=== PATIENT | female | born 1965 | race Caucasian/White ===

== ENCOUNTER 2018-04-27 10:32 | Emergency (ER) | payer BC, MEDICARE ==
[2018-04-27] MEDS ORDERED: ONDANSETRON HCL IV 4 MG/2 ML VIAL IV ONE (11:03)
[2018-04-27] MEDS ORDERED: 0.9 % SODIUM CHLORIDE 1,000 ML BAG IV ONE (11:03)
[2018-04-27] MEDS ORDERED: KETOROLAC 30 MG/ML VIAL IVP ONE (11:03)
--- NOTE | 2018-04-27 11:03 | Emergency Department Record ---
History of Present Illness - General Chief Complaint: Abdominal Pain Stated Complaint: ABD PAIN Time Seen by Provider: 04/27/18 10:54 Source: Patient Mode of Arrival: Wheelchair - History of Present Illness Initial Comments: Monday04-23-18, the patient saw Dr Bey for a UTI. She had no blood drawn or scans, but had 5/10 LLQ into flank pain at that time. She began getting IM rocephin shots yesterday once, and this morning for a second dose. Last evening she began feeling lightheaded and shakey with an increase in her pain from 5/10 to 7/10 and very severe nausea without vomiting. She was brought to the ED for evaluation of this increased pain and light headedness. 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 She also has daily migraines. She denies headache fevers, sore throat or chills. MD Complaint: Abdominal pain, Flank pain Onset/Timin -: Week(s) Location: LLQ Radiation: Back Severity: Moderate Severity scale (1-10): 7 Quality: Cramping, Sharp Consistency: Constant Improves With: Rest Worsens With: Movement Associated Symptoms: Dysuria - Related Data Patient : No Home Medications Medication Instructions Recorded Confirmed Last Taken Amitriptyline HCl 100 mg PO QHS 04/27/18 04/27/18 Unknown Clonidine HCl 0.1 mg PO ASDIR 04/27/18 04/27/18 Unknown Diphenhydramine HCl [Benadryl] 50 mg PO QHS 04/27/18 04/27/18 Unknown Ketorolac Tromethamine 30 mg IJ ASDIR 04/27/18 04/27/18 Unknown Lorazepam [Ativan] 0.5 mg PO TID PRN 04/27/18 04/27/18 Unknown Memantine HCl 5 mg PO BID 04/27/18 04/27/18 Unknown Methocarbamol [Robaxin] 500 mg PO BID 04/27/18 04/27/18 Unknown Promethazine HCl [Phenergan] 25 mg PO ASDIR 04/27/18 04/27/18 Unknown Trazodone HCl 50 mg PO QHS 04/27/18 04/27/18 Unknown Allergies Allergy/AdvReac Type Severity Reaction Status Date / Time acetaminophen [From Vicodin] Allergy VOMITING Verified 03/17/15 18:26 hydrocodone bitartrate Allergy VOMITING Verified 03/17/15 18:26 [From Vicodin] sumatriptan succinate Allergy SHORTNESS Verified 03/17/15 18:26 [From Imitrex] OF BREATH Travel Screening - Travel/Exposure Within Last 30 Days Have you traveled within the last 30 days?: No Review of Systems Reviewed: No additional complaints except as noted below Constitutional: Reports: As per HPI. Denies: Chills, Fever, Malaise, Night sweats, Weakness, Weight change Eyes: Reports: As per HPI. Denies: Eye discharge, Eye pain, Photophobia, Vision change ENT: Reports: As per HPI. Denies: Congestion, Dental pain, Ear pain, Epistaxis , Hearing loss, Throat pain Respiratory: Reports: As per HPI. Denies: Cough, Dyspnea, Hemoptysis, Stridor, Wheezes Cardiovascular: Reports: As per HPI. Denies: Arrhythmia, Chest pain, Dyspnea on exertion, Edema, Murmurs, Orthopnea, Palpitations, Paroxysmal nocturnal dyspnea, Rheumatic Fever, Syncope Endocrine: Reports: As per HPI. Denies: Fatigue, Heat or cold intolerance, Polydipsia, Polyuria Gastrointestinal: Reports: As per HPI. Denies: Abdominal pain, Constipation, Diarrhea, Hematemesis, Hematochezia, Melena, Nausea, Vomiting Genitourinary: Reports: As per HPI. Denies: Abnormal menses, Discharge, Dyspareunia, Dysuria, Frequency, Hematuria, Incontinence, Retention, Urgency Musculoskeletal: Reports: As per HPI. Denies: Arthralgia, Back pain, Gout, Joint swelling, Myalgia, Neck pain Skin: Reports: As per HPI. Denies: Bruising, Change in color, Change in hair/ nails, Lesions, Pruritus, Rash Neurological: Reports: As per HPI. Denies: Abnormal gait, Confusion, Headache, Numbness, Paresthesias, Seizure, Tingling, Tremors, Vertigo, Weakness Psychiatric: Reports: As per HPI. Denies: Anxiety, Auditory hallucinations, Depression, Homicidal thoughts, Suicidal thoughts, Visual hallucinations Hematological/Lymphatic: Reports: As per HPI. Denies: Anemia, Blood Clots, Easy bleeding, Easy bruising, Swollen glands Past Medical History - SOCIAL HISTORY Smoking Status: Never smoker - RESPIRATORY Hx Respiratory Disorders: No - CARDIOVASCULAR Hx Cardio Disorders: Yes Hx Hypertension: Yes - NEURO Hx Neuro Disorders: Yes Hx Headaches: Yes - GI Hx GI Disorders: Yes Hx Reflux: Yes Hx Obstructive Bowel: Yes - Hx Genitourinary Disorders: No - ENDOCRINE Hx Endocrine Disorders: No - MUSCULOSKELETAL Hx Musculoskeletal Disorders: Yes Hx Back Injury: Yes - PSYCH Hx Psych Problems: No - HEMATOLOGY/ONCOLOGY Hx Hematology/Oncology Disorders: No Family Medical History Any Significant Family History?: Yes Hx Alcohol Use: Father Hx HTN: Mother Physical Exam - General General Appearance: Alert, Oriented x3, Cooperative, Moderate distress - Head Head exam: Normal inspection - Eye Eye exam: Normal appearance, PERRL Pupils: Normal accommodation - ENT ENT exam: Normal exam, Mucous membranes dry, Normal external ear exam, Normal orophraynx, TM's normal bilaterally Ear exam: Normal external inspection. negative: External canal tenderness Nasal Exam: Normal inspection. negative: Discharge, Sinus tenderness Mouth exam: Normal external inspection, Tongue normal Teeth exam: Normal inspection. negative: Dental caries Throat exam: Normal inspection. negative: Tonsillar erythema, Tonsillar exudate - Neck Neck exam: Normal inspection, Full ROM. negative: Lymphadenopathy, Meningismus , Tenderness - Respiratory Respiratory exam: Normal lung sounds bilaterally. negative: Respiratory distress - Cardiovascular Cardiovascular Exam: Regular rate, Normal rhythm, Normal heart sounds - GI/Abdominal GI/Abdominal exam: Soft, Normal bowel sounds, Guarding, Tenderness (LLQ tender to palpation with radiation into left flank.). negative: Rebound, Rigid - Rectal Rectal exam: Deferred - exam: Deferred - Extremities Extremities exam: Normal inspection, Full ROM, Normal capillary refill. negative: Calf tenderness, Pedal edema, Tenderness - Back Back exam: Reports: Normal inspection, Full ROM. Denies: CVA tenderness (R), CVA tenderness (L), Muscle spasm, Rash noted, Tenderness - Neurological Neurological exam: Alert, CN II-XII intact, Normal gait, Oriented X3, Reflexes normal. negative: Motor sensory deficit - Psychiatric Psychiatric exam: Normal affect, Normal mood - Skin Skin exam: Dry, Intact, Normal color, Warm Course Vital Signs 04/27/18 10:33 Temperature 97.8 F Pulse Rate 90 Respiratory 20 Rate Blood Pressure 165/104 Pulse Ox 98 - Reevaluation(s) Reevaluation #1: Patient is requesting something more for her pain. Dilaudid ordered. 04/27/18 13:12 Reevaluation #2: Discussed with Dr. Feliciano surgery compensation programs manager who requests patient be transferred ED to ED to [facility] for surgery resident to see. Patient aware and agrees. 04/27/18 13:13 Reevaluation #3: 04/27/18 13:19 04/27/18 13:20 Reevaluation #4: DW Dr. Marlene Arredondo who accepts patient in transfer to [facility] EDept. 04/27/18 13:24 Medical Decision Making - Management Options MDM Management: Additional Work-up Planned (e.g. ADM/Transfer/OP Study) ( Transfer to [facility] EDepartment for Surgery to evaluate.) - Data Complexity MDM Data: Labs Ordered and/or Reviewed, X-Ray Ordered and/or Reviewed (CT Abdomen Pelvis: Profound amount of stool dilating cecum to 8 cm, no wall gas, no perforation, suspicious for sigmoid volvulous. Per radiologist. ) - Lab Data Result diagrams: 04/27/18 10:44 04/27/18 10:44 Disposition Disposition: Transfer Clinical Impression: Volvulus of sigmoid colon, LLQ abdominal pain, Bacterial UTI Disposition: Acute Care Hospital Transfer Return To Work/School Note Provided: No Decision to Admit: Admit from ER Transfer To: [facility] Emergency Reason For Transfer: Dr. Feliciano surgery care Accepting Physician: Arnul[facility] Crain EDept; Dr. Feliciano Surgery Time Discussed w/Accepting Physician: 13:18 Condition: (1) Good Quality - Quality Measures Quality Measures: N/A - Blood Pressure Screening Does Patient Have Any of the Following: No Blood Pressure Classification: Hypertensive Reading Systolic Measurement: 165 Diastolic Measurement: 104 Screening for High Blood Pressure: < First Hypertensive BP, F/U Documented > [ [id number]] First Hypertensive Follow-up Interventions: Follow-up with rescreen GT 1 day and LT 4 weeks., Lifestyle modifications., Referral to alternative/primary care provider. Lifestyle Modification: Weight Reduction
[2018-04-27 11:19] LABS: BASO % 0.7 % (0-6); EOS % 2.7 % (0-6); GRAN % 54.5 % (47-80); HEMATOCRIT 41.2 % (35.0-47.0); HEMOGLOBIN 12.7 gm/dl (11.6-16.0); LYMPH % 34.9 % (16-45); MEAN CELL VOLUME 94.9 fl (81-97); MEAN CORPUSCULAR HEMOGLOBIN 29.3 pg (27-33); MEAN CORPUSCULAR HGB CONC 30.8 g/dl (32-36); MONO % 7.2 % (0-9); PLATELET COUNT 198 K/uL (130-400); RED BLOOD COUNT 4.34 M/uL (3.80-5.40); RED CELL DISTRIBUTION WIDTH 14.1 % (11.5-14.5); URINE APPEARANCE CLEAR; URINE BILIRUBIN NEGATIVE (NEGATIVE); URINE BLOOD NEGATIVE (NEGATIVE); URINE COLOR YELLOW; URINE GLUCOSE (UA) NEGATIVE (NEGATIVE); URINE KETONE NEGATIVE (NEGATIVE); URINE LEUKOCYTE ESTERASE TRACE (NEGATIVE); URINE NITRITE NEGATIVE (NEGATIVE); URINE PROTEIN NEGATIVE (NEGATIVE); URINE UROBILINOGEN 0.2 E.U./dL (0.20 - 1.00); WHITE BLOOD COUNT W/O DIFF 4.2 K/uL (4.2-12.2)
[2018-04-27 11:25] LABS: URINE BACTERIA NONE SEEN; URINE MUCUS LIGHT; URINE RBC NONE SEEN (NONE SEEN); URINE WBC 0 - 2 (0-2/hpf)
[2018-04-27 11:37] LABS: BLOOD UREA NITROGEN 14 mg/dL (6-20); CREATININE 0.8 mg/dL (0.5-0.9); EST GLOMERULAR FILTRATION RATE > 60 mL/min
[2018-04-27 11:38] LABS: TOTAL PROTEIN 7.5 g/dL (6.6-8.7)
[2018-04-27 11:40] LABS: GLUCOSE,RANDOM 96 mg/dL (74-109)
[2018-04-27 11:42] LABS: ALB/GLOB RATIO 1.7 (1.1-1.8); ALBUMIN 4.7 g/dL (4.0-5.0); ALKALINE PHOSPHATASE 82 U/L (35-104); ALT/SGPT 16 U/L (<33); AST/SGOT 17 U/L (10.0-35.0)
[2018-04-27 11:43] LABS: LIPASE 36 U/L (13-60)
[2018-04-27] MEDS ORDERED: HYDROMORPHONE HCL 2 MG/ML VIAL IVP ONE ×2 (12:26→13:12)
[2018-04-27] MEDS ORDERED: ONDANSETRON HCL IV 4 MG/2 ML VIAL IVP ONE (13:12)
[2018-04-27] MEDS ORDERED: ERTAPENEM SODIUM 1 G in 0.9 % SODIUM CHLORIDE 100ML 100 ML IVPB ONE (13:13)
--- NOTE | 2018-04-28 20:42 | CT SCAN REPORT ---
EXAM: CT SCAN ABDOMEN/PELVIS WO CONTRAST HISTORY: LEFT LOWER QUADRANT PAIN. TECHNIQUE: Axial images are obtained from above the diaphragm to the symphysis pubis. Coronal and sagittal reformatted images are evaluated. FINDINGS: Lung bases and pleural spaces are clear. The liver is unremarkable in size and shape without focal mass or intrahepatic biliary dilatation. Cholecystectomy clips are present in the right upper quadrant. The pancreas is unremarkable, as is the spleen. The adrenal glands are normal. The kidneys are free of hydronephrosis, soft tissue mass, or obvious calculi. The stomach demonstrates postoperative changes at the epigastrium and small bowel, possibly from gastric bypass. The colon is distinctly abnormal with a large amount of stool distending the colon from the cecum to the proximal sigmoid colon. The proximal sigmoid colon is dilated and is directed toward the right upper quadrant, lying just beneath the liver. The dilatation of the sigmoid colon is predominately gaseous in origin. The distal sigmoid colon and the rectum are completely decompressed. There is no evidence colonic wall thickening in the sigmoid colon. There is no evidence of obvious twisting of the mesentery. There is no evidence of significant mesenteric inflammatory change. The bladder is unremarkable. There is no evidence of retroperitoneal or intrapelvic soft tissue mass. The thoracolumbar junction demonstrates moderate DJD without lytic or blastic lesion. IMPRESSION: ABNORMAL STUDY. THERE IS PROFOUND CONSTIPATION WITH STOOL FILLING THE COLON. THE CONFIGURATION OF THE SIGMOID COLON IS WORRISOME FOR INTERMITTENT SIGMOID VOLVULUS. THERE IS NO EVIDENCE OF BOWEL WALL THICKENING OR MESENTERIC COMPROMISE. CONSIDER ENDOSCOPY OR CONTRAST STUDY OF THE COLON FOR CONFIRMATION. THERE IS NO EVIDENCE OF PERFORATION OR PERITONITIS. JOB NUMBER: [id number] [facility]
== END 2018-04-27 13:52 | disposition short-term general hospital (02) ==
LOC: ER 10:32
DX: K56.2 Volvulus (principal); R10.32 Left lower quadrant pain; N39.0 Urinary tract infection, site not specified; B96.89 Other specified bacterial agents as the cause of diseases classified elsewhere; R11.0 Nausea; R42 Dizziness and giddiness; I10 Essential (primary) hypertension
CPT/HCPCS: 74176; 80053; 81001; 83690; 85025; 96365; 96372; 96375; 96376; 99285; J1885; J2405; J7030